=== PATIENT | female | born 2000 | race Caucasian/White ===

== ENCOUNTER → 2022-08-10 10:56 | Outpatient (CLI) | payer BC, SELFPAY ==
--- NOTE | ~2022-08-10 | US_ITS ---
EXAMINATION: US pelvic complete w TV DATE: 08/10/2022 11:45 INDICATION: Pelvic pain Comparison:No prior studies for comparison. TECHNIQUE: Multiple transabdominal and endovaginal sonographic images of the pelvis performed. FINDINGS: The uterus measures 5.3 x 3.2 x 3.8 cm. The endometrial complex measures 6 mm. The right ovary measures 2.2 x 1.5 x 1.3 cm and the left ovary measures 2 x 1.5 x 1.3 cm. There are small follicles in each ovary. Normal doppler signal in both ovaries. There is no free fluid in the pelvis. There are no abnormal masses seen on either side. IMPRESSION: 1. Unremarkable pelvic ultrasound. Reviewed, dictated and finalized at location A. IFIED SURGICAL TECH/FIRST ASSISTANT
== END ==
PROVIDERS: PCP Obstetrics & Gynecology; Visit Provider Obstetrics & Gynecology
DX: R10.2 Pelvic and perineal pain (principal)
CPT/HCPCS: 76830; 76856

== ENCOUNTER 2022-08-10 11:44 | Outpatient (NON) | payer BC, SELFPAY | END 2022-08-10 11:45 | disposition home or self-care (01) | LOC: ANHGOSHLAB 11:49 | PROVIDERS: PCP Obstetrics & Gynecology; Visit Provider Obstetrics & Gynecology | DX: R10.2 Pelvic and perineal pain (principal) | CPT/HCPCS: 87086 ==

== ENCOUNTER → 2022-09-26 08:26 | Outpatient (CLI) | payer BC, SELFPAY ==
--- NOTE | ~2022-09-26 | US_ITS ---
Abdominal Sonogram: Real-time sonographic imaging of the abdomen was performed. Clinical History: Abdominal pain Findings: The liver appears normal with no evidence of mass lesion or bile duct dilatation. Main por crystal vein demonstrates normal direction of flow. The spleen is normal in size without evidence of foca l lesion. The gallbladder is well distended, and appears normal with no evidence of gallstone or wal l thickening. The common bile duct measures 3 mm. The visualized pancreas, aorta, and IVC are unrema rkable. The right kidney measures 12.0 cm in length and the left kidney measures 11.2 cm. There is no hydronephrosis or renal calculus. Impression: Unremarkable abdominal ultrasound. Reviewed, dictated and finalized at location . CAL ESTHETICIAN Impression: Unremarkable abdominal ultrasound.
== END ==
PROVIDERS: PCP Student in an Organized Health Care Education/Training Program; Visit Provider Student in an Organized Health Care Education/Training Program
DX: R10.9 Unspecified abdominal pain (principal); G89.29 Other chronic pain
CPT/HCPCS: 76700

== ENCOUNTER 2025-01-13 00:24 | Day surgery (SDC) | payer BC, SELFPAY ==
[2025-01-05 13:57] VITALS: BMI 27.8
--- NOTE | 2025-01-05 14:24 | PC.NURSE ---
Report to the Outpatient Waiting Room, entrance under the green pavilion located off [facility], at time _0600 on date _01/13/25 . Planned Procedure Time: _07 .? Time changes happen often and if your time is changed the preop area will call you the afternoon before. - You and your visitor will be asked to self-screen and do not enter if you have any COVID symptoms. Please call surgeon if you need to reschedule. - A mask is optional within the hospital at this time. Patients may have clear liquids (water, carbonated beverages, clear teas, apple juice) until 3 hours prior to surgery with a maximum of 20 ounces. - No food from midnight until time of surgery and no smoking, or chewing tobacco (or any form of nicotine). No chewing gum, candy or mints. - Take only the following medications with a SIP of water on the morning of surgery: __FLUOXETINE, HYDROXYZINE, ADDERALL DO NOT STOP ANY OF YOUR OTHER PRESCRIPTION MEDICATIONS PRIOR TO SURGERY EXCEPT THE FOLLOWING Hold all vitamins and supplements for 3 days per anesthesiologist. Medications to discontinue per physician VIT D3 & VIT B 12 Date to take last dose___01/10/25 Please no make-up, nail tamazight, hairspray, perfume, deodorant, or body powder the day of surgery.? No jewelry (including any body piercings) or valuables the day of surgery, leave them at home.? Please take a shower or bath the night before, or the morning of, surgery with an antibacterial soap.? Wear comfortable, loose fitting clothing.? - Jewelry must be removed prior to entering the operating room.? Rings and piercings that are not removed may be cut off. - The hospital will not accept responsibility for valuables.? - Please leave all valuables, including medications, at home the day of surgery. If you are going home after surgery, a licensed electric pile driver operator must drive you home.? - NO public transportation without another adult if you receive anesthesia. - We recommend that an adult stay with you for 24 hours following discharge. - We also recommend that you do not drive, make important decision, drink alcoholic beverages, or take any drugs that were not prescribed by your health care provider for at least 24 hours after your discharge time. Follow any additional instructions given to you from your surgeon. Telephone instructions given to _SURAJ and asked if any additional questions and then verbalized understanding. Patient advised to call surgeon office or pre surgery nurse liaison [phone] if any additional questions.
[2025-01-13] VITALS (9 sets, daily range): BP systolic 86–112; BP diastolic 46–67; PULSE 78–86; RESP 16–22; TEMP 36.6–36.8; O2SAT 98–100; BMI 27.8
--- OUTSIDE RECORDS SUMMARY | 2025-01-13 00:27 | XMS_ITS | Encounter Summary ---
Author Organization [facility] Address [facility] [place] [address] Care Team Providers Care Rotary Furnace Operator Name Role Phone Venessa Cuevas MD Primary Care Provider [phone] Rand Pleitez LAVENDER FARM WORKER Unavailable [phone] Nuha Dennis [facility] Primary Care Provider + Encounter Details Date Type Department Care Team (Late st Contact Info) Description 07/15/2023 Mobile Pulse Message Enc [facility] Medical Group Family & Internal Medicine [facility] [id number] [place] [phone] [place]queria, [facility] Provider lab results Social History Tobacco Use Types Packs/Day Years Used Date Smoking Tobacco: Every Day Cigarettes Smokeless Tobacco: Never Comments:Vaps with nicotine Alcohol Use Standard Drinks/Week Comments Yes 0 (1 standard drink = 0.6 oz pur e alcohol) once per week PHQ-2 Answer Date Recorded Patient Health Questionnaire-2 Score 4 09/04/2022 Comments No Sex and Gender Information Value Date Recorded Sex Assigned at Female 10/22/2024 10:45 AM PRODUCE SHIPPER Legal Sex Female 6:47 PM CDT Gender Identity Not on file Sexual Orientation Not on file documented as of this encounter Plan of Treatment Not on file documented as of this encounter Visit Diagnoses Not on filedocumented in this encounter Additional Health Concerns Infection Onset Date Last Indicated Resolved Time COVID-19 Rule Out 12/14/2023 12/14/2023 12/14/2023 12:35 PM CDT Assessment Noted Time PHQ-9 Depression Total Score: 15 022 4:11 PM PRODUCE SHIPPER documented as of this encounter Care Teams Rotary Furnace Operator Relationship Specialty [place] [address] [place] [address] PCP - General FAMILY PRACTICE 09/04/22 02/11/24 Nuha Dennis, [facility]- [address], [address] [place] [address] PCP - General Nurse Practitioner [facility] 02/12/24 Rand Pleitez NP [address] [place] [address] [place] [address] NURSE PRACTITIONER 12/14/23 documented as of this encounter
--- OUTSIDE RECORDS SUMMARY | 2025-01-13 00:27 | XMS_ITS | Clinical Summary ---
Author Organization [place] [address] [address] Address [address] [place] [id number] Care Team Providers Care Tablet Making Machine Operator Name Role Phone Unknown, Notinfile Primary Care Provider Unavail able Allergies No known active allergies Medications dextroamphetami ne-amphetamine XR (ADDERALL XR) 30 mg 24 hr capsule 10 mg 2 (two) times a day 11/30/2021 Active FLUoxetine (PROzac) 40 mg capsule Take 1 capsule (40 mg total) by mouth daily Active venlafaxine XR (EFFEXOR-XR) 75 mg 24 hr capsule Take 75 mg by mouth daily 09/21/2021 Active traZODone (DESYREL) 50 mg tablet Take 1 tablet (50 mg total) by mouth nightly Active hydrOXYzine (ATARAX) 10 mg tablet Take 1 tablet (10 mg total) by mouth 3 (three) times a day as needed for itching Active Vyvanse 70 mg capsule Take 1 capsule (70 mg total) by mouth every morning Active Low-Ogestrel, 28, 0.3-30 mg-mcg per tablet Take 1 tablet by mouth daily 01/02/2023 Active omeprazole (PriLOSEC) 20 mg capsule Take 20mg twice a day for 2 weeks then 1 time a daily 03/20/[address] (PROTONIX) 40 mg EC tablet Take 1 tablet (40 mg total) by mouth daily 01/21/2023 Active Sutab 1.479-0.188- 0.225 gram tablet TAKE DIRECTED PER PHYSICIAN'S INSTRUCTION. 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 Iliotibial band syndrome 09/26/2016 Patellofemoral syndrome of left knee 09/26/2016 Plantar fasciitis of left foot 09/26/2016 Medical History Medical History Date Comments Anxiety grade school Depression college Family History Medical History Relation Name Comments Arthritis Father Lila Cervantes Depression Mother Mariela Cervantes Learning disabilities Mother Mariela Cervantes Miscarriages / Stillbirths Mother Mariela Evans Relation Name Status Comments Father Lila Cervantes Mother Mariela Cervantes Social History Tobacco Use Types Packs/Day Years Used Date Smoking Tobacco: Every Day Vaping Smokeless Tobacco: Never Tobacco Cessation:Ready to Q uit: Not Asked; Counseling Given: Not Answered Comments No Sex and Gender Information Value Date Recorded Sex Assigned at Not on file Legal Sex Female 8:15 AM STAINED GLASS GLAZIER HELPER Gender Identity Female 12/05/2021 12:20 PM CDT Sexual Orientation Straight 12/05/2021 12 :20 PM CDT Obstetrics History Last Filed Vital Signs Vital Sign Reading Time Taken Comments Blood Pressure 116/68 06/14/2023 6:08 PM CDT Pulse 90 06/14/2023 6:08 PM CDT Temperature 37.3 C (99.1 F) 06/14/2023 6:08 PM CDT Respiratory Rate 16 06/14/2023 6:08 PM CDT Oxygen Saturation 99% 06/14/2023 6:08 PM CDT Inhaled Oxygen Concentration - - Weight 96.2 kg (212 lb) 06/14/2023 6:08 PM CDT Height 182.9 cm (6') 06/14/2023 6:08 PM CDT Body Mass Index 28.75 06/14/2023 6:08 PM CDT Plan of Treatment Health Maintenance Due Date Last Done Comments Cervical Cancer Screening 2001 Depression Screening 2001 Hepatitis C Screening 2001 Regular Well Visit/Exam 18-64 2019 Pneumococcal vaccine <65 (1 of 1 - PPSV23) 12/17/2019 10/22/2019, 07/09/2002, 01/26/2002, Additional history exists Chlamydia and Gonorrhea (GC/ CT) Screening 12/05/2022 12/05/2021 DTaP/Tdap/Td Vaccine (7 - Td or Tdap) 03/31/2023 03/31/2013, 04/16/2007, 01/26/2003, Additional history exists Covid-19 Vaccine (3 - 2023-2 5 season) 2024 05/03/2021, 04/07/2021 Influenza Vaccine (Season Ended) 2025 07/11/2020, 07/11/2020, 10/22/2019, Additional history exists Hepatitis B Screening Completed 07/09/2002 , 2001, 2001 Varicella Vaccines Completed 04/16/2007, 07/09/2002 HPV Vaccines Completed 10/21/2013, 05/25, 03/31/2013 Meningococcal B Vaccine Completed 06/30/2018, 05/21 Procedures Procedure Name Priority Date/Time Associated Diagnosis Comments N. GONORRHOEAE/C. TRACHOMATIS AMPLIFICATION Routine 12/05/2021 3:12 PM CDT Urine frequency from Last 3 Months or Most Recently Relevant to Health Maintenance Results * N. gonorrhoeae/C. trachomatis Amplification Urine (12/05/2021 3:12 PM CDT) C. trachomatis Not detected Not detected [facility] N. gonorrhoeae Not detected Not detected [facility] Comment: Testing performed by the [facility]. This assay detects Chlamydia trachomatis and Neisseria gonorrhoeae by nucleic acid amplification testing (NAAT). This test is approved by the [place] Food and Drug Administration and the performance characteristics have been verified by the laboratory. The performance characteristics of this test have not been evaluated in women or individuals less than 16 years of age. Urine (None) 12/05/2021 3:12 PM CDT 12/05/2021 6:01 PM CDT us Marilee Carmona NP LAB MICROBIOLOGY - GENERAL ORD ERABLES Final Result [facility] [id number] [facility] Department [place] [address] from Last 3 Months or Most Recently Relevant to Health Maintenance Insurance [employer] OOS [employer] Care Teams Tablet Making Machine Operator Relationship Specialty Start Date End Date Unknown, Notinfile PCP - General 12/05/21
--- OUTSIDE RECORDS SUMMARY | 2025-01-13 00:27 | XMS_ITS | Encounter Summary ---
Author Organization [facility] Address [facility] [place] [address] Care Team Providers Care Kitchen Operator Name Role Phone Venessa Cuevas MD Primary Care Provider [phone] Rand Pleitez FIXED INCOME MANAGER Unavailable [phone] Nuha Dennis [facility] Primary Care Provider + Encounter Details Date Type Department Care Team (Late st Contact Info) Description 03/20/2023 Rocket.Lat Message Enc [facility] Medical Group General Surgery [address], [facility] [address] [place] [address] Lonny Batista MD [address] [address] Guera mendez colonoscopy Social History Tobacco Use Types Packs/Day Years [...] Sex Assigned at Female 10/22/2024 10:45 AM METAL HANGER Legal Sex Female 6:47 PM CDT Gender Identity Not on file Sexual Orientation Not on file documented as of this encounter Progress Notes * Nando Salvador MA - 03/22/2023 9:09 AM CDT Patient was aware documented in this encounter Plan of Treatment Not on file documented as of this encounter Visit Diagnoses Not on filedocumented in this encounter Additional Health Concerns Infection Onset Date Last Indicated Resolved Time COVID-19 Rule Out 12/14/2023 12/14/2023 12/14/2023 12:35 PM CDT Assessment Noted Time PHQ-9 Depression Total Score: 15 022 4:11 PM METAL HANGER documented as of this encounter Care Teams Kitchen Operator Relationship Specialty [place] [address] [place] [address] PCP - General FAMILY PRACTICE 09/04/22 02/11/24 Nuha Dennis, [facility]- [address], [address] [place] [address] PCP - General Nurse Practitioner Family 02/12/24 Rand Pleitez NP [address] [place] [address] [place] [address] NURSE PRACTITIONER 12/14/23 documented as of this encounter
--- OUTSIDE RECORDS SUMMARY | 2025-01-13 00:27 | XMS_ITS | Encounter Summary ---
Author Organization [facility] Address [facility] [place] [address] Care Team Providers Care Buffing Turner And Counter Name Role Phone Venessa Cuevas MD Primary Care Provider [phone] Rand Pleitez COREMAKING MACHINE OPERATOR Unavailable [phone] Nuha Dennis [facility] Primary Care Provider + Encounter Details Date Type Department Care Team (Late st Contact Info) Description 12/06/2022 Omate Message Enc [facility] Medical Group Family & Internal Medicine [address] [address] [place], [facility] Provider consultation Social History Tobacco Use Types Packs/Day Years Used Date Smoking Tobacco: Never Smokeless Tobacco: Never Alcohol Use Standard Drinks/Week Comments Yes 0 (1 standard drink = 0.6 oz pur e alcohol) once per week PHQ-2 Answer Date Recorded Patient Health Questionnaire-2 Score 4 09/04/2022 Comments No Sex and Gender Information Value Date Recorded Sex Assigned at Female 10/22/2024 10:45 AM KINDERGARTEN AIDE Legal Sex Female 6:47 PM CDT Gender Identity Not on file Sexual Orientation Not on file documented as of this encounter Progress Notes * Monse Lacy MA - 12/06/2022 1:06 PM CDT Please advise. documented in this encounter Plan of Treatment Not on file documented as of this encounter Visit Diagnoses Not on filedocumented in this encounter Additional Health Concerns Infection Onset Date Last Indicated Resolved Time COVID-19 Rule Out 12/14/2023 12/14/2023 12/14/2023 12:35 PM CDT Assessment Noted Time PHQ-9 Depression Total Score: 15 022 4:11 PM KINDERGARTEN AIDE documented as of this encounter Care Teams Buffing Turner And Counter Relationship Specialty [place] [address] [place] [address] PCP - General FAMILY PRACTICE 09/04/22 02/11/24 Nuha Dennis, [facility]- [address], [address] [place] [address] PCP - General Nurse Practitioner Family 02/12/24 Rand Pleitez, COREMAKING MACHINE OPERATOR [address] [place] [address] [place] [address] NURSE PRACTITIONER 12/14/23 documented as of this encounter
--- OUTSIDE RECORDS SUMMARY | 2025-01-13 00:27 | XMS_ITS | Referral Summary ---
Author Organization [place] [address] [address] Address [address] [place] [phone] Care Team Providers Care Manager Proposal Name Role Phone Unknown, Notinfile Primary Care [...] 09/26/2016 Plantar fasciitis of left foot 09/26/2016 Social History Tobacco Use Types Packs/Day Years Used Date Smoking Tobacco: Every Day Vaping Smokeless Tobacco: Never Tobacco Cessation:Ready to Q uit: Not Asked; Counseling Given: Not Answered Comments No Sex and Gender Information Value Date Recorded Sex Assigned at Not on file Legal Sex Female 8:15 AM WIRE HARNESS ASSEMBLER Gender Identity Female 12/05/2021 12:20 PM CDT Sexual Orientation Straight 12/05/2021 12 :20 PM CDT Last Filed Vital Signs Vital Sign Reading [...] 06/14/2023 6:08 PM CDT Plan of Treatment Not on file Procedures Procedure Name Priority Date/Time Associated Diagnosis Comments N. GONORRHOEAE/C. TRACHOMATIS AMPLIFICATION Routine 12/05/2021 3:12 PM CDT Urine frequency from Last 3 Months or Most Recently Relevant to Health Maintenance Results * N. gonorrhoeae/C. trachomatis Amplification Urine (12/05/2021 3:12 PM CDT) C. trachomatis Not detected Not detected [facility] N. gonorrhoeae Not detected Not detected [facility]ARE Comment: Testing performed by the [facility]. This assay detects Chlamydia trachomatis and [...] 3:12 PM CDT 12/05/2021 6:01 PM CDT Marilee Carmona NP LAB MICROBIOLOGY - GENERAL ORD ERABLES Final Result [facility] [id number] [address] Department [place] [address] from Last 3 Months or Most Recently Relevant to Health Maintenance Insurance [employer] OOS [employer] O[employer] [facility] OOS Care Teams Manager Proposal Relationship Specialty Start Date End Date Unknown, Notinfile PCP - General 12/05/21
--- OUTSIDE RECORDS SUMMARY | 2025-01-13 00:27 | XMS_ITS | Clinical Summary ---
Author Organization [facility] Address [facility] [place] [address] Care Team Providers Care Director Digital Advertising Name Role Phone Pricilla Rand Polo LOANS OFFICER Unavailable [phone] Nuha Dennis [facility] Primary Care Provider + Allergies Active Allergy Reactions Criticality Noted Date Comments Grass Rash Low 07/26/2023 Medications traZODone (DESYREL) 50 MG tablet Take 1 tablet (50 mg total) by mouth nightly at bedtime. 2 Active amphetamine-de xtroamphetamin e XR (ADDERALL XR) 20 MG 24 hr capsule Take 1 capsule (20 mg total) by mouth see administration instructions. TAKE 1 CAPSULE BY MOUTH TWICE DAILY IN THE MORNING AND AT NOON 3 Active FLUoxetine (PROZAC) 40 MG capsule Take 1 capsule (40 mg total) by mouth daily. Active naproxen (NAPROSYN) 500 MG tablet Take 1 tablet (500 mg total) by mouth 2 (two) times daily with meals. 60 tablet 4 Active hydrOXYzine (VISTARIL) 25 MG capsule TAKE 1 CAPSULE BY MOUTH DAILY NEEDED FOR ANXIETY 4 Active medroxyPROGEST ERone (DEPO-PROVERA) injection 4 Active vitamin D2, ergocalciferol , (DRISDOL) 1.25 mg capsule Take 1 capsule (1.25 mg total) by mouth every 7 days. Mondays Active vitamin B-12 (CYANOCOBALAMI N) (CYANOCOBALAMI N) 1000 mcg tablet Take 1 tablet (1,000 mcg total) by mouth daily. Active Active Problems Problem Noted Date Diagnosed Date Pelvic pain 10/13/2024 Vitamin D deficiency 03/08/2024 BMI 26.0-26.9,adult 03/08/2024 Vitamin B12 deficiency 03/08/2024 Excessive sweating 03/08/2024 Irritable bowel syndrome without diarrhea 2022 Chronic gastritis without bl eeding, unspecified gastritis type 07/26/2023 Overweight 07/26/2023 Abdominal pain, unspecified abdominal location 0 01/04/2023 Abnormal laboratory test 01/04/2023 Change in bowel habits 01/04/2023 Anxiety and depression 10/07/2022 ADHD 10/07/2022 Encounters Date Type Department Care Team Description 12/18/2024 8:00 AM CDT - 12/18/2024 11:59 PM CDT Hospital Encounter [facility] [address] [place] [address] Martin Cotto MD Discharge Disposition: Home or Self Care (Routine Discharge) 12/18/2024 Travel 11/17/2024 10:51 AM ADMINISTRATION PROFESSIONAL - 11/17/2024 11:59 PM ADMINISTRATION PROFESSIONAL Hospital Encounter [facility] [address] [place] [address] Katty Sheth, PT Rand Pleitez, LOANS OFFICER Pelvic Pain (01/30 ) Discharge Disposition: Home or Self Care (Routine Discharge) 11/17/2024 Travel 11/04/2024 8:56 AM ADMINISTRATION PROFESSIONAL - 11/04/2024 11:59 PM ADMINISTRATION PROFESSIONAL Hospital Encounter [facility] [address] [place] [address] Katty Sheth, PT Rand Pleitez, LOANS OFFICER Pelvic Pain (12/31) Discharge Disposition: Home or Self Care (Routine Discharge) 11/04/2024 Travel 10/27/2024 12:08 PM ADMINISTRATION PROFESSIONAL - 10/27/2024 11:59 PM ADMINISTRATION PROFESSIONAL Hospital Encounter [facility] [address] [place] [address] Katty Sheth, PT Rand Pleitez M, LOANS OFFICER Pelvic Pain (3) Discharge Disposition: Home or Self Care (Routine Discharge) 10/27/2024 Travel 10/22/2024 10:45 AM ADMINISTRATION PROFESSIONAL - 10/22/2024 11:59 PM ADMINISTRATION PROFESSIONAL Hospital Encounter [facility] [address] [place] [address] Katty Sheth, PT Pricilla, Rand M, LOANS OFFICER Pelvic Pain (2) Discharge Disposition: Home or Self Care (Routine Discharge) 10/22/2024 Travel from Last 3 Months Immunizations Immunization Administration Dates Next Due Afluria 6-35 months (pre-jose led syringe IIV4) 10/22/2019 COVID-19 Vaccine (Generic) 07/20/2024 Dtap (Acel-Immune) 04/16/2007, 3,01/26/2002,11/22,2001 Flumist (Intranasal LAIV4) 08/04/2014 Flumist (Intranasal) 08/04/2014 H1N1 2009 Influenza Vaccine 10/03/2009, 9 H1N1 Intranasal 2009 Influenza 10/03/2009,2008 HPV4 (Gardasil) 10/21/2013,06/15/2013,03/31/2013 Hepatitis A (Havrix [address]) 06/11/2011, 009 Hib-Hepatitis B (Comvax) 07/09/2002,2001,0 2001 Influenza (Generic) 07/20/2024, 1,07/23/2003,09/11,2001 Influenza Adult (Generic) 08/06/2023,,07/11/2020,05/21,06/25/2017,08/28/2016,08/02/2015 ,10/03/2013 MMR (MMRII) 04/16/2007,07/09/2002 Meningcoccal Group B (Bexser o)(aka Meningitis) 06/30/2018,05/21/2018 Meningococcal (Menactra) 05/21/2018,03/31/2013 Pneumococcal (Prevnar 20) 03/02/2024 Pneumococcal (Prevnar 7) 10/22/2019,06/23,01/26/2002,11/22,2001 Polio IPV (Ipol) 04/16/2007, 2,2001,10/01 Tdap (Adacel) 03/02/2024 Tdap (Generic) 03/31/2013 Varicella (Varivax) 04/16/2007,07/09/2002 Family History Medical History Relation Comments No Known Problems Brother Hypothyroidism Father Breast Cancer Maternal Aunt Alzheimer's disease Maternal Grandfather CHF Maternal Grandmother ADD / ADHD Mother Crohns Disease Mother Depression Mother Endometriosis Mother No Known Problems Sister Relation Status Comments Brother Father Maternal Aunt Alive Maternal Grandfather Maternal Grandmother Mother Sister Social History Tobacco Use Types Packs/Day Years Used Date Smoking Tobacco: Every Day Smokeless Tobacco: Current Tobacco Cessation:Ready to Q uit: Not Asked; Counseling Given: Yes Comments:Vaps with nicotine; occasional at work Alcohol Use Standard Drinks/Week Comments Yes 3.7 (1 standard drink = 0.6 oz p ure alcohol) once per month 2-3 drinks PHQ-2 Answer Date Recorded Patient Health Questionnaire-2 Score 0 03/02/2024 Comments No Sex and Gender Information Value Date Recorded Sex Assigned at Female 10/22/2024 10:45 AM ADMINISTRATION PROFESSIONAL Legal Sex Female 6:47 PM CDT Gender Identity Not on file Sexual Orientation Not on file Last Filed Vital Signs Vital Sign Reading Time Taken Comments Blood Pressure 113/73 09/03/2024 10:35 AM ADMINISTRATION PROFESSIONAL Pulse 95 09/03/2024 10:35 AM ADMINISTRATION PROFESSIONAL Temperature 36.4 C (97.5 F) 09/03/2024 10:35 AM ADMINISTRATION PROFESSIONAL Respiratory Rate 16 09/03/2024 10:35 AM ADMINISTRATION PROFESSIONAL Oxygen Saturation 99% 09/03/2024 10:35 AM ADMINISTRATION PROFESSIONAL Inhaled Oxygen Concentration - - Weight 95.3 kg (210 lb) 09/03/2024 10:35 AM ADMINISTRATION PROFESSIONAL Height 182.9 cm (6') 09/03/2024 10:35 AM ADMINISTRATION PROFESSIONAL Body Mass Index 28.48 09/03/2024 10:35 AM ADMINISTRATION PROFESSIONAL Plan of Treatment Health Maintenance Due Date Last Done Comments Cervical Cancer Screening Pap Smear (Age 21 to 29) Every 3 Years 2001 Annual Physical 2004 Hepatitis C 2019 PHQ-2 (Physician [place]) 09/23/2024 03/02/2024 Chlamydia Screening Females ages 16-24 12/13/2024 12/14/2023 Cervical Cancer Screening 09/03/2025 Po stponed from 2001 (Going to Outside Clinic) DTaP, Tdap and Td Vaccines (8 - Td or Tdap) 03/02/2034 03/02/2024, 03/31/2013, 04/16/2007, Additional history exists Hepatitis B Vaccines Completed 07/09/2002, 2001, 2001 HPV Vaccines Completed 10/21/2013, 05/25, 03/31/2013 Meningococcal Vaccine Completed 05/21/2018, 013 Meningococcal B Vaccine Completed 06/30/2018, 05/21 Pneumococcal Vaccine: Pediatrics (0 to 5 Years) and At-Risk Patients (6 to 49 Years) Completed 03/02/2024, 10/22/2019, 07/09/2002, Additional history exists COVID-19 Vaccine Completed 07/20/2024, , 07/20/2022, Additional history exists RSV Immunizations Under 20 Months Aged Out No longer eligible based on patient's age to complete this topic Procedures Procedure Name Priority Date/Time Associated Diagnosis Comments US PELVIC NON OB COMP TA+TV Routine 12/18/2024 8:33 AM CDT Pelvic and perineal pain CHLAMYDIA GC RNA STAT 12/14/2023 12:0 9 PM CDT from Last 3 Months or Most Recently Relevant to Health Maintenance Results * US PELVIC NON OB COMP TA+TV (12/18/2024 8:33 AM CDT) Anatomical Region Laterality Modality Pelvis Ultrasound 12/21/2024 10:3 7 AM CDT Impressions 12/21/2024 10:40 AM CDT IMPRESSION: 1) No significant sonographic abnormality. Ordered By: MARTIN COTTO Interpreted By: Hans Hernandez MD, 12/21/2024 10:37 AM Narrative 12/21/2024 10:[address] [facility] [address] [place] [address] Examination: US PELVIC NON OB COMP TA+TV Exam time: 12/18/2024 8:00 AM Clinical history: Pelvic pain Comparison: 12/11/2023 Technique: Longitudinal and transverse grayscale images of the pelvic structures were obtained using both transabdominal and transvaginal technique. Findings: The uterus is anteverted and normal in size. Normal homogeneous echogenicity of the myometrium. No focal uterine mass lesion. Normal appearance of the endometrial stripe with maximum 5 mm thickness. Tiny amount of nonspecific fluid in the endometrial canal. Normal appearance of the cervix. The ovaries are normal in size and morphology. Right ovary measures 2.8 x 1.8 x 1.8 cm. Left ovary measures 3.3 x 1.5 x 1.3 cm. There is a 1.8 cm cyst in the right ovary likely representing mature follicle. Small follicles are seen in both ovaries. Color Doppler demonstrates normal blood flow to both ovaries. No adnexal mass or fluid collection. Procedure Note Hans Hernandez MD - 12/21/2024 [facility] [address] [place] [id number] Examination: US PELVIC NON OB COMP TA+TV Exam time: 12/18/2024 8:00 AM Clinical history: Pelvic pain Comparison: 12/11/2023 Technique: Longitudinal and transverse grayscale images of the pelvicstructures were obtained using both transabdominal and transvaginaltechnique. Findings: The uterus is anteverted and normal in size. Normal homogeneousechogenicity of the myometrium. No focal uterine mass lesion. Normalappearance of the endometrial stripe with maximum 5 mm thickness. Tinyamount of nonspecific fluid in the endometrial canal. Normal appearance ofthe cervix. The ovaries are normal in size and morphology. Right ovary measures 2.8 x1.8 x 1.8 cm. Left ovary measures 3.3 x 1.5 x 1.3 cm. There is a 1.8 cmcyst in the right ovary likely representing mature follicle. Smallfollicles are seen in both ovaries. Color Doppler demonstrates normalblood flow to both ovaries. No adnexal mass or fluid collection. IMPRESSION: 1) No significant sonographic abnormality. Ordered By: MARTIN COTTO Interpreted By: Hans Hernandez MD, 12/21/2024 10:37 AM us Martin Cotto MD ULTRASOUND Final Result * CHLAMYDIA GC RNA (12/14/2023 12:09 PM CDT) SPECIMEN SOURCE URINE 12:10 PM CDT [facility] CHLAMYDIA PCR NEGATIVE NEGATIVE 12/17/2023 12:22 AM CDT [facility] Comment:PERFORMED BY NUCLEIC ACID AMPLIFICATION N.GONORRHOEAE RNA TMA NEGATIVE NEGATIVE 12/17/2023 12:22 AM CDT [facility] Comment:PERFORMED BY NUCLEIC ACID AMPLIFICATION URINE SPECIMEN / Unknown 12/14/2023 12:09 PM CDT us Anahi Molina MD MICROBIOLOGY - GENERAL ORDERABL ES Final Result [facility] [address] [place] [address], [place] [phone] [facility] [address] [place] [address], [place] [phone] from Last 3 Months or Most Recently Relevant to Health Maintenance Insurance [facility] Care Teams Director Digital Advertising Relationship Specialty Start Date End Date Nuha Dennis, AERODYNAMICS ENGINEER- [id number], [address] [place] [address] PCP - General Nurse Practitioner Family 02/12/24 Rand Pleitez, LOANS OFFICER [address] [place] [id number] NURSE PRACTITIONER 12/14/23
--- OUTSIDE RECORDS SUMMARY | 2025-01-13 00:27 | XMS_ITS | Encounter Summary ---
Author Organization [facility] Address [facility] [place] [address] Care Team Providers Care Diabetes [employer] Specialist Name Role Phone Venessa Cuevas MD Primary Care Provider [phone] Rand Pleitez CATERING DIRECTOR Unavailable [phone] Nuha Dennis [facility] Primary Care Provider + Encounter Details Date Type Department Care Team (Late st Contact Info) Description 09/21/2022 [employer] Message Enc [facility] Family & Internal Medicine [address] [phone] [employer], [facility] Provider results Social History Tobacco Use Types Packs/Day Years Used Date Smoking Tobacco: Never Smokeless Tobacco: Never Alcohol Use Standard Drinks/Week Comments Yes 0 (1 standard drink = 0.6 oz pur e alcohol) once per week PHQ-2 Answer Date Recorded Patient Health Questionnaire-2 Score 4 09/04/2022 Comments No Sex and Gender Information Value Date Recorded Sex Assigned at Female 10/22/2024 10:45 AM SILK FOLDER Legal Sex Female 6:47 PM CDT Gender Identity Not on file Sexual Orientation Not on file COVID-19 Exposure Response Date Recorded In the last 10 days, have yo u been in contact with someone who was confirmed or suspected to have Coronavirus/COVID-19? No / Unsure 09/04/2022 3:41 PM SILK FOLDER documented as of this encounter Plan of Treatment Not on file documented as of this encounter Visit Diagnoses Not on filedocumented in this encounter Additional Health Concerns Infection Onset Date Last Indicated Resolved Time COVID-19 Rule Out 12/14/2023 12/14/2023 12/14/2023 12:35 PM CDT Assessment Noted Time PHQ-9 Depression Total Score: 15 022 4:11 PM SILK FOLDER documented as of this encounter Care Teams Diabetes [employer] Specialist Relationship Specialty [place] [address] [place] [id number] PCP - General FAMILY PRACTICE 09/04/22 02/11/24 Nuha Dennis, CORN HUSKER- [address], [address] [place] [id number] PCP - General Nurse Practitioner Family 02/12/24 Rand Pleitez, CATERING DIRECTOR [address] [place] [address] [place] [address] NURSE PRACTITIONER 12/14/23 documented as of this encounter
--- NOTE | 2025-01-13 06:39 | P.PNAN_ITS ---
Anes - Initial Pre Proc Eval Procedure: Operation Date: 01/13/25 07:30 Proposed Procedures p Diagnostic Laparoscopy - Martin Carrillo MD Date/Time: 01/13/25 06:39 Surgeon: Martin Carrillo MD Pre Op Diagnosis: Chronic Pelvic Pain Patient Data Age: 24 Gender: F Height: 1.83 m Weight: 93 kg Allergies Allergy/AdvReac Type Severity Reaction Status Date / Time No Known Allergies Allergy Verified 01/05/25 14:28 Home Medications ?Medication ?Instructions ?Recorded ?Confirmed ?Type cholecalciferol (vitamin D3) 1,250 1,250 mcg PO WEEKLY 04/02/24 01/05/25 History mcg (50,000 unit) capsule cyanocobalamin (vitamin B-12) 1,000 mcg PO DAILY 04/02/24 01/05/25 History 1,000 mcg capsule fluoxetine 40 mg capsule (Prozac) 40 mg PO DAILY 04/02/24 01/05/25 History hydroxyzine HCl 25 mg tablet 25 mg PO BID PRN anxiety 04/02/24 01/05/25 History trazodone 50 mg tablet 50 mg PO QHS PRN insomnia 04/02/24 01/05/25 History medroxyprogesterone 150 mg/mL 150 mg IM [id number] #1 mL 12/14/24 01/05/25 Rx intramuscular syringe (Depo-Provera) dextroamphetamine-amphetamine 20 20 mg PO BID 12/31/24 01/05/25 History mg tablet (Adderall) Patient hx anesthesia problems: none Family hx anesthesia problems: none Results Review: All pre-operative results and documents have been reviewed as part of the pre- operative evaluation. [facility] Past Medical History Medical History Pelvic pain Depression Irritable bowel Anxiety ADHD Family History Family History Father Hypertension Depression Thyroid disorder Mother Depression Grandparent Heart disease Social History Social History (Updated 01/13/25 @ 06:45 by Amanuel Verduzco DO) Smoking status: Current every day smoker Tobacco type: e-cigarettes/vaping Second hand tobacco smoke exposure: No Alcohol intake: current Substance use: current Substance use type: marijuana Other substance usage details: daily Last use: 01/04/25 Anes - Eval Final PreProcedure Day of Procedure 01/13/25 06:39 Patient weight: overweight Heart: regular rate and rhythm Lungs: clear to auscultation Airway: Mallampati scale class II Neurological: alert and oriented Last oral intake: >/= 8 hours ASA classification: III Emergent: no Anesthetic plan: proceed Anesthesia type and monitoring: general ETT and standard monitoring Results Review: All pre-operative results and documents have been reviewed as part of the pre- operative evaluation. Informed Consent: The patient's anesthetic plan and its attendant risks and benefits were di scussed with the patient/family/POA. Questions were solicited and answers provided to the satisfaction of the patient/family/POA.
[2025-01-13] MEDS: LACTATED RINGERS 1,000 ML 30 ML IV CONT (06:55)
[2025-01-13] MEDS: ACETAMINOPHEN 500 MG TABLET 1000 MG PO (06:57)
[2025-01-13] MEDS: KETOROLAC 15 MG/ML VIAL (*BKC) IV PUSH (06:58)
[2025-01-13 07:06] LABS: BEDSIDEPREGUCG Negative (Negative)
[2025-01-13] MEDS: SCOPOLAMINE 1 MG PATCH 1 PATCH TRANSDERM (07:07)
--- NOTE | 2025-01-13 07:36 | WPDHPUPDATE1 ---
History and Physical Update Update Date/Time: 01/13/25 07:36 History and Physical has been reviewed, including an updated exam of the patient. There are NO changes in the patient's condition. Risks, benefits, and alternatives have been discussed and questions answered. Patient agrees to proceed with procedure.
[2025-01-13] MEDS: DOXYCYCLINE 100 MG/NS 100 ML 100 MG/100 ML BAG IVPB (08:05)
[2025-01-13] MEDS: BUPivacaine HCL 0.5% 10 ML AMP 30 ML INFILTRATE (08:20)
--- NOTE | 2025-01-13 08:33 | W.PM.PROC2 ---
Procedure Note - Detailed Date of Procedure 01/13/25 Pre-op Diagnosis Chronic Pelvic Pain Post-op Diagnosis Other (1. Chronic pelvic pain 2. Endometriosis) Procedure Performed Diagnostic laparoscopy with biopsy of posterior cul de sac and ablation of endometriosis with cautery. Surgeon Martin Carrillo MD Anesthesia General Indications Chronic pelvic pain Findings 1. Normal fallopian tubes and ovaries, dark red implant with scarring at posterior mid cul de sac which was biopsied and cauterized Description of Procedure After informed consent was obtained patient was taken to the operating room and general endotracheal anesthesia was administered. She was placed in low lithotomy need prep prepped sterile fashion. Attention was turned to the vagina speculum inserted single-tooth tenaculum placed on anterior lip of the cervix. [place] uterine manipulator placed into the cervical canal. The speculum was removed. Attention was then turned to the abdomen. With sterile gloves a vertical incision was made at the umbilicus and a Veress needle was inserted into the abdomen confirmation into the abdomen obtained with free flow of fluid and normal peritoneal pressures. A pneumoperitoneum of 15 mm per mercury was obtained. The 5 mm port was inserted under laparoscopic visualization. Patient was placed in Trendelenburg position. Attention was turned to the left side of the abdomen and a 5 mm port was inserted under laparoscopic visualization. The pelvic organs were visualized. Biopsy forcep was used to biopsy the lesion posterior cul de sac. This area was then cauterized. The left port removed. Pneumoperitoneum released. The umbilical port removed. Patient was taken out of Trendelenburg position. The acorn manipulator was removed. Skin incisions were closed in a subcuticular fashion with 4 O Vicryl and dermabond placed. Patient tolerated procedure well. Sponge count correct. Estimated Blood Loss 5 Drains No Packing No Pathology Yes (biopsy of posterior cul de sac) Complications No immediate complications Condition Stable Disposition Same day [facility] Billing Surgery - Charge Forward: Surgery Billing
[2025-01-13] MEDS: fentaNYL CITRATE INJ (*CRX) 100 MCG/2 ML VIAL 25 MCG IV PUSH ×4 (09:05→09:11)
[2025-01-13] MEDS: ONDANSETRON INJ 4 MG/2 ML VIAL IV PUSH (09:05)
== END 2025-01-13 10:27 | disposition home or self-care (01) ==
PROVIDERS: PCP Nurse Practitioner Family; Visit Provider Obstetrics & Gynecology
PROC: (CPT 49320; principal; 2025-01-13 07:30)
DX: N80.329 Endometriosis of the posterior cul-de-sac, unspecified depth (principal); G89.29 Other chronic pain; F32.A Depression, unspecified; K58.9 Irritable bowel syndrome, unspecified; F41.9 Anxiety disorder, unspecified; F90.9 Attention-deficit hyperactivity disorder, unspecified type; F17.290 Nicotine dependence, other tobacco product, uncomplicated; Z82.49 Family history of ischemic heart disease and other diseases of the circulatory system
CPT/HCPCS: 49320; 88305; A9270; J1100; J1885; J2003; J2250; J2405; J2704; J3010; J7030; J7120